=== PATIENT | male | born 1945 | race Caucasian/White ===

== ENCOUNTER 2020-09-04 06:45 | Day surgery (SDC) | payer MEDICARE, BC ==
[~2020-09-04 06:45] MED LIST: Lactated Ringers 1,000 ML IV SCH; Sodium Chloride 0.9% 10 ML Syringe FLUSH PRN
[2020-09-04] MEDS ORDERED: Propofol 200 MG/20 ML SDV IV ONE (06:46)
--- NOTE | 2020-09-04 08:28 | PCM.OPNOTE ---
- General Post-Op/Procedure Note Date of Surgery/Procedure: 09/04/20 Operative Procedure(s): egd with biopsy. c scope with biopsy. (cold forceps for both) Findings: gastritis hyperplastic polyp of rectum internal hemorrhoids Pre Op Diagnosis: Fe def anemia Post-Op Diagnosis: gastritis. hyperplastic polyp of rectum. internal hemorrhoids Anesthesia Technique: [facility] – [place] Primary Surgeon: Chad Pennington Anesthesia Provider: Torrey Borrero Pathology: stomach and rectum Complications: None Condition: Good Free Text/Narrative:: see dictation #[id number]
[2020-09-04 09:45] VITALS: BP 140/112; PULSE 70
--- NOTE | 2020-09-04 10:05 | OR ---
DATE OF OPERATION: 09/04/2020 SURGEON: Chad Pennington MD PROCEDURE PERFORMED: Esophagogastroduodenoscopy with cold forceps biopsy and colonoscopy with cold forceps biopsy. PREOPERATIVE DIAGNOSIS: Iron-deficiency anemia. POSTOPERATIVE DIAGNOSIS: Gastritis, hyperplastic polyps of the rectum, and internal hemorrhoids. INDICATIONS FOR PROCEDURE: This is a 74-year-old white male recently found to have an iron-deficiency anemia. As part of his workup, he was offered and accepted an upper and lower endoscopy. He is currently without any GI complaints. DESCRIPTION OF PROCEDURE: After an excellent IV sedation was administered, the bite block was inserted. The flexible endoscope was passed without difficulty down the patient's esophagus into the stomach. Stomach was insufflated. Scope passed through the pylorus, second portion of the duodenum, and slowly withdrawn. The following findings were noted. Duodenum was unremarkable. Stomach demonstrated very prominent rugae which were irritated as well as some linear erythema in the area of the antrum. Biopsies were taken of both these areas and submitted in 1 container. GE junction measured approximately 40 cm and the remainder of the esophageal exam was unremarkable. Stomach was deflated, and the scope was removed. Attention was then turned to the patient's colon. Digital rectal exam was performed. No marked abnormality was noted. The prostate was essentially unremarkable. The flexible endoscope was passed without difficulty and advanced up the patient's rectum to the patient's cecum. After identifying the cecum by the usual anatomic landmarks, scope was slowly withdrawn. The prep was excellent. The following findings were noted. Ascending colon, unremarkable. Transverse colon, unremarkable. Descending colon, unremarkable. Sigmoid, unremarkable. Rectum, 2 hyperplastic polyps were encountered. These were biopsied and obliterated with cold biopsy forceps and submitted to confirm the diagnosis. On retroflexing the scope, there was evidence of some internal hemorrhoids. No obvious bleeding was noted. The colon was deflated. Scope was removed. Patient tolerated the procedure well. Results will be sent to the patient via letter. /[id number] /MODL
== END 2020-09-04 09:20 | disposition home or self-care (01) ==
LOC: FB.SDS 06:45
PROVIDERS: ATTEND Surgery
DX: K62.1 Rectal polyp (principal); D50.9 Iron deficiency anemia, unspecified; K64.8 Other hemorrhoids; K29.50 Unspecified chronic gastritis without bleeding; I10 Essential (primary) hypertension; E78.49 Other hyperlipidemia; I48.0 Paroxysmal atrial fibrillation; Z79.899 Other long term (current) drug therapy; Z98.890 Other specified postprocedural states
CPT/HCPCS: 00813-QZ; 88305; 88342; J2001; J2704; J7120

== ENCOUNTER 2022-08-31 01:00 | Emergency (ER) | payer MEDICARE, BC ==
[2022-08-31] MEDS ORDERED: methylPREDNISolone Sodium Succinate 125 MG/2 ML SDV IM ONE (01:16)
[2022-08-31] MEDS ORDERED: Albuterol/Ipratropium 3.0-0.5 MG/3 ML Neb Soln NEB ONE (01:16)
[2022-08-31 01:31] LABS: ESTIMATED GFR 63 mL/min (>60)
[2022-08-31 02:33] VITALS: BP 141/80; PULSE 78
== END 2022-08-31 03:32 | disposition home or self-care (01) ==
LOC: FB.ED 01:00
DX: J44.1 Chronic obstructive pulmonary disease with (acute) exacerbation (principal); I48.91 Unspecified atrial fibrillation; I11.0 Hypertensive heart disease with heart failure; I50.9 Heart failure, unspecified; E78.00 Pure hypercholesterolemia, unspecified; K21.9 Gastro-esophageal reflux disease without esophagitis; F17.210 Nicotine dependence, cigarettes, uncomplicated; E66.9 Obesity, unspecified; Z79.01 Long term (current) use of anticoagulants; Z79.899 Other long term (current) drug therapy; Z68.35 Body mass index [BMI] 35.0-35.9, adult
CPT/HCPCS: 36415; 71045; 80053; 83880; 84484; 85025; 93005; 94640; 96372; 99285; J2930; J7620

== ENCOUNTER 2024-06-12 10:16 | Emergency (ER) | payer MEDICARE, BC ==
[2024-06-12] MEDS ORDERED: Sodium Chloride 0.9% 10 ML Syringe FLUSH PRN (10:21)
[2024-06-12 10:34] LABS: HEMATOCRIT 33.2 % (38.3-50.1); HEMOGLOBIN 11.4 g/dL (12.9-17.7); MEAN CORPUSCULAR HGB CONC 34.3 g/dL (28.7-35.3); MEAN CORPUSCULAR VOLUME 102.1 fL (80.8-98.7); RED BLOOD CELL COUNT 3.25 x10(6)uL (3.90-5.90); RED CELL DISTRIBUTION WIDTH 12.9 % (12.4-15.0); WHITE BLOOD CELL COUNT,WBC 6.7 x10-3/uL (3.2-10.1)
[2024-06-12 10:50] LABS: INR 1.13 (1.00-1.24); PROTHROMBIN TIME 11.6 sec (9.0-11.1)
[2024-06-12 10:51] LABS: PTT,PARTIAL THROMBOPLSTIN TIME 30.4 SECONDS (24.4-33.2)
[2024-06-12 10:52] LABS: TROPONIN I 11.4 pg/mL (4.0-60.3)
[2024-06-12] MEDS: Iopamidol 755 Mg/ML 100 ML Bottle IV SCH (11:05)
[2024-06-12] MEDS: Ondansetron 4 MG/2 ML SDV IVPUSH ONE (11:42)
[2024-06-12] MEDS ORDERED: TRANEXAMIC ACID IV ONE (11:45)
[2024-06-12] MEDS ORDERED: SODIUM CHLORIDE 0.9% IV ONE (11:45)
[2024-06-12] MEDS: Labetalol 20 MG/4 ML Syringe IVPUSH ONE (11:51)
[2024-06-12] MEDS: Factor IX Complex Human 500 UNIT VIAL IVPUSH ONE (12:18)
[2024-06-12 12:23] LABS: A/G RATIO 1.2; ALANINE AMINOTRANSFERASE,ALT 29 U/L (12-36); ALBUMIN 3.9 g/dL (3.2-4.6); ALKALINE PHOSPHATASE 96 IU/L (56-112); ASPARTATE AMNIOTRANSFERASE,AST 22 IU/L (5-25); BILIRUBIN TOTAL 0.6 mg/dL (0.1-1.3); BLOOD UREA NITROGEN,BUN 22 mg/dL (7-18); BUN/CREATININE RATIO 14.7 (9-20); CALCIUM 9.2 mg/dL (8.6-10.2); CARBON DIOXIDE,CO2 23 mmol/L (21-32); CHLORIDE,CL 106 mmol/L (100-110); CREATININE 1.5 mg/dL (0.70-1.30); EST CRCL DRUG DOSING (CG) 44.55 mL/min; ESTIMATED GFR 47 mL/min (>60); GLUCOSE RANDOM 160 mg/dL (80-116); POTASSIUM,K 3.7 mmol/L (3.5-5.3); PROTEIN TOTAL,TP 7.3 g/dL (6.0-8.0); SODIUM,NA 142 mmol/L (135-145)
== END 2024-06-12 12:59 ==
LOC: FB.ED 10:16
DX: I61.9 Nontraumatic intracerebral hemorrhage, unspecified (principal); I48.91 Unspecified atrial fibrillation; I10 Essential (primary) hypertension; E78.00 Pure hypercholesterolemia, unspecified; K21.9 Gastro-esophageal reflux disease without esophagitis; E66.9 Obesity, unspecified; Z79.01 Long term (current) use of anticoagulants; Z79.899 Other long term (current) drug therapy; Z68.30 Body mass index [BMI] 30.0-30.9, adult
CPT/HCPCS: 36415; 70450; 70496; 70498; 71045; 80053; 82947; 83880; 84484; 85027; 85610; 85730; 93005; 93010; 96365; 96375; 99285; J2405; J7168; Q9967; J3490

== ENCOUNTER 2024-08-01 20:30 | Emergency (ER) | payer MEDICARE, BC ==
[2024-08-01] MEDS ORDERED: Sodium Chloride 0.9% 10 ML Syringe FLUSH PRN (20:38)
[2024-08-01 21:02] LABS: BASOPHILS ABSOLUTE AUTO 0.1 x10-3/uL (0.0-0.3); BASOPHILS PERCENT AUTO 0.9 % (0.3-3.8); EOSINOPHILS ABSOLUTE AUTO 0.5 x10-3/uL (0.0-0.6); EOSINOPHILS PERCENT AUTO 4.7 % (0.1-6.8); HEMATOCRIT 38.7 % (38.3-50.1); HEMOGLOBIN 12.9 g/dL (12.9-17.7); LYMPHOCYTES ABSOLUTE AUTO 1.4 x10-3/uL (0.5-4.5); LYMPHOCYTES PERCENT AUTO 14.2 % (15.8-45.3); MEAN CORPUSCULAR HEMOGLOBIN 33.4 pg (27.0-33.3); MEAN CORPUSCULAR HGB CONC 33.3 g/dL (28.7-35.3); MEAN CORPUSCULAR VOLUME 100.1 fL (80.8-98.7); MEAN PLATELET VOLUME 8.2 fL (6.7-11.0); MONOCYTES PERCENT AUTO 9.7 % (5.5-15.2); NEUTROPHILS ABSOLUTE AUTO 7.1 x10-3/uL (1.7-6.9); NEUTROPHILS PERCENT AUTO 70.5 % (40.3-71.8); PLATELET COUNT,PLT 340 x10(3)uL (117-477); RED BLOOD CELL COUNT 3.87 x10(6)uL (3.90-5.90); WHITE BLOOD CELL COUNT,WBC 10.1 x10-3/uL (3.2-10.1)
[2024-08-01 21:08] LABS: BLOOD UREA NITROGEN,BUN 20 mg/dL (7-18); BUN/CREATININE RATIO 15.4 (9-20); CALCIUM 10.3 mg/dL (8.6-10.2); CARBON DIOXIDE,CO2 29 mmol/L (21-32); CHLORIDE,CL 106 mmol/L (100-110); CREATININE 1.3 mg/dL (0.70-1.30); ESTIMATED GFR 56 mL/min (>60); GLUCOSE RANDOM 110 mg/dL (80-116); POTASSIUM,K 4.2 mmol/L (3.5-5.3); SODIUM,NA 147 mmol/L (135-145)
[2024-08-01 21:09] VITALS: BP 147/70; PULSE 110
[2024-08-01 21:13] LABS: A/G RATIO 0.9; ALANINE AMINOTRANSFERASE,ALT 19 U/L (12-36); ALBUMIN 3.7 g/dL (3.2-4.6); ALKALINE PHOSPHATASE 115 IU/L (56-112); ASPARTATE AMNIOTRANSFERASE,AST 17 IU/L (5-25); BILIRUBIN TOTAL 0.7 mg/dL (0.1-1.3); PROTEIN TOTAL,TP 7.8 g/dL (6.0-8.0)
[2024-08-01 21:14] LABS: INR 1.13 (1.00-1.24); PROTHROMBIN TIME 11.6 sec (9.0-11.1); PTT,PARTIAL THROMBOPLSTIN TIME 28.2 SECONDS (24.4-33.2)
[2024-08-01 21:31] LABS: LACTIC ACID 1.5 mmol/L (0.4-2.0)
[2024-08-01 21:57] LABS: BILIRUBIN,URINE NEGATIVE (NEGATIVE); GLUCOSE,URINE NORMAL (NORMAL); KETONES,URINE NEGATIVE (NEGATIVE); LEUKOCYTE ESTERASE,URINE MODERATE (NEGATIVE); NITRITE,URINE NEGATIVE (NEGATIVE); OCCULT BLOOD,URINE MODERATE (NEGATIVE); PROTEIN,URINE 30 mg/dL (NEGATIVE); UROBILINOGEN,URINE NORMAL (NEGATIVE)
[2024-08-01 22:03] LABS: APPEARANCE,URINE SLIGHTLY CLOUDY (CLEAR); COLOR,URINE YELLOW (YELLOW)
[2024-08-01 22:04] LABS: BACTERIA,URINE FEW (NS); RBC,URINE 0-5 (0-5); SQUAMOUS EPITHELIAL CELLS,UR OCCASIONAL (NS,R,O)
[2024-08-01] MEDS: cefTRIAXone 1 GM Vial IVPUSH STA (22:24)
== END 2024-08-01 22:45 ==
LOC: FB.ED 20:30
DX: N39.0 Urinary tract infection, site not specified (principal); I10 Essential (primary) hypertension; K21.9 Gastro-esophageal reflux disease without esophagitis; R06.89 Other abnormalities of breathing; E78.00 Pure hypercholesterolemia, unspecified; E66.9 Obesity, unspecified; Z79.899 Other long term (current) drug therapy; Z68.26 Body mass index [BMI] 26.0-26.9, adult; Z79.01 Long term (current) use of anticoagulants
CPT/HCPCS: 36415; 70450; 71045; 80053; 81001; 83605; 83880; 84484; 85025; 85610; 85730; 87086; 87088; 87186; 93005; 96374; 99285; C1758; J0696

== ENCOUNTER 2024-08-27 10:41 | Emergency (ER) | payer MEDICARE, BC ==
[2024-08-27] MEDS ORDERED: Sodium Chloride 0.9% 10 ML Syringe FLUSH PRN (11:15)
[2024-08-27 12:34] LABS: LACTIC ACID 2.1 mmol/L (0.4-2.0)
[2024-08-27] MEDS: cefTRIAXone 1 GM Vial IVPUSH ONE (12:50)
[2024-08-27] MEDS: Sodium Chloride 0.9% 1,000 ML IV ONE (12:50)
[2024-08-27 13:37] LABS: BILIRUBIN,URINE SMALL (NEGATIVE); GLUCOSE,URINE NORMAL (NORMAL); KETONES,URINE NEGATIVE (NEGATIVE); LEUKOCYTE ESTERASE,URINE NEGATIVE (NEGATIVE); NITRITE,URINE NEGATIVE (NEGATIVE); OCCULT BLOOD,URINE NEGATIVE (NEGATIVE); PROTEIN,URINE 500 mg/dL (NEGATIVE); UROBILINOGEN,URINE 1 mg/dL (NEGATIVE)
[2024-08-27 13:38] VITALS: BP 143/67; PULSE 104
[2024-08-27 13:40] LABS: APPEARANCE,URINE CLOUDY (CLEAR); COLOR,URINE YELLOW (YELLOW)
[2024-08-27 13:52] LABS: BACTERIA,URINE MANY (NS); SQUAMOUS EPITHELIAL CELLS,UR FEW (NS,R,O); WBC,URINE 0-5 (0-5)
== END 2024-08-27 14:24 ==
LOC: FB.ED 10:41
DX: J69.0 Pneumonitis due to inhalation of food and vomit (principal); I48.91 Unspecified atrial fibrillation; I10 Essential (primary) hypertension; E78.00 Pure hypercholesterolemia, unspecified; Z79.899 Other long term (current) drug therapy; Z79.01 Long term (current) use of anticoagulants
CPT/HCPCS: 36415; 81001; 83605; 83735; 86140; 87040; 96361; 96374; 99284; J0696; J7030

== ENCOUNTER 2024-10-08 16:54 | Emergency (ER) | payer MEDICARE, BC ==
[2024-10-08 17:05] VITALS: BP 124/55; PULSE 71
== END 2024-10-08 18:11 | disposition home or self-care (01) ==
LOC: FB.ED 16:54
DX: S09.90XA Unspecified injury of head, initial encounter (principal); I10 Essential (primary) hypertension; E78.00 Pure hypercholesterolemia, unspecified; K21.9 Gastro-esophageal reflux disease without esophagitis; E66.9 Obesity, unspecified; Z79.899 Other long term (current) drug therapy; W19.XXXA Unspecified fall, initial encounter
CPT/HCPCS: 70450; 99283